=== PATIENT | male | born 1990 | race African-American/Black ===

== ENCOUNTER → 2017-01-01 | Outpatient (CLI) | payer OTHER ==
--- NOTE | 2017-01-01 11:53 | RAD ---
Indication knee pain. No history of injury. AP lateral and oblique views of the left knee were obtained. No bony abnormality is seen
== END | disposition home or self-care (01) ==
LOC: DXRADRC 11:20
PROVIDERS: ATTEND Family Medicine
DX: M79.605 Pain in left leg (principal)
CPT/HCPCS: 73562

== ENCOUNTER 2017-04-04 11:06 | Emergency (ER) | payer OTHER ==
[~2017-04-04] VITALS: Ht 177.8 cm; Wt 136.1 kg
[2017-04-04] MEDS ORDERED: IOHEXOL 300 MG/ML 75 ML VIAL. IV ONE (11:45)
[2017-04-04 11:56] LABS: HEMOGLOBIN ISTAT 15.6 gm/dL
--- NOTE | 2017-04-04 12:32 | RAD ---
Indication right lower quadrant pain for a week. Axial images through the abdomen and pelvis were obtained. 75 cc of Omnipaque 300 was administered intravenously. No oral contrast was administered. Note is made of a previous examination in 2006. The lung bases are clear. The liver and spleen appear unremarkable. The gallbladder appears grossly normal. No adrenal or renal anomalies are seen. The pancreas appears unremarkable. A focal mass or inflammatory process in the abdomen is not seen. In the pelvis the appendix is seen in the right lower quadrant and appears unremarkable. A focal mass is not seen. An acute finding in the pelvis is not apparent. There are occasional calcifications in the pelvis compatible with phleboliths. IMPRESSION: No acute finding seen in the abdomen or pelvis.
[2017-04-04 12:49] VITALS: BP 146/100
--- NOTE | 2017-04-04 14:30 | ED.ADGEN ---
Past History Past Medical History: Diabetes Past Surgical History: No Surgical History Alcohol Use: None Drug Use: None Adult General Chief Complaint Chief Complaint Abdominal pain HPI HPI Patient is a 26-year-old -[place] male presents with intermittent abdominal pain times one week, nausea and vomiting. Patient was seen at the primary care office this morning and outpatient labs performed. He was referred to the ED for an CT of the abdomen and pelvis to rule out appendicitis. Patient' s pain is minimal at this time. He denies urinary frequency urgency or hematuria. No flank pain history of kidney stones. No testicular pain swelling or or masses per patient. Review of Systems Review of Systems Review symptoms as per history of present illness. All other review symptoms are negative. Current Medications Current Medications Current Medications Medications (Trade) Dose Ordered Sig/Rina Start Time Stop Time Status Last Admin Dose Admin Iohexol (Omnipaque 300 Mg/ml) 75 ml 1X ONCE 04/04/17 11:45 04/04/17 11:46 DC Allergies Allergies Allergies Coded Allergies Type Severity Reaction Last Updated Verified No Known Drug Allergies 04/04/17 No Physical Exam Physical Exam Constitutional: Well developed, well nourished, no acute distress, non-toxic appearance. [] HENT: Normocephalic, atraumatic, bilateral external ears normal, oropharynx moist, no oral exudates, nose normal. [] Eyes: PERRLA, EOMI, conjunctiva normal, no discharge. [] Neck: Normal range of motion, no tenderness, supple, no stridor. [] Cardiovascular:Heart rate regular rhythm, no murmur [] Lungs & Thorax: Bilateral breath sounds clear to auscultation [] Abdomen: Bowel sounds normal, soft, no tenderness to palpation. Negative McBurney sign.. [] Skin: Warm, dry, no erythema, no rash. [] Back: No tenderness, no CVA tenderness. [] Neurologic: Alert and oriented X 3, normal motor function, normal sensory function, no focal deficits noted. [] Psychologic: Affect normal, judgement normal, mood normal. [] Current Patient Data Vital Signs Vital Signs Date Time Temp Pulse Resp B/P (MAP) Pulse Ox O2 Delivery O2 Flow Rate FiO2 04/04/17 12:49 69 18 146/100 (115) 98 Room Air 04/04/17 11:14 97.7 Lab Results Laboratory Tests Test 04/04/17 11:48 POC Hemoglobin 15.6 gm/dL POC Hematocrit 46 % POC Sodium 141 mmol/L (135-145) POC Potassium 4.0 mmol/L (3.5-5.0) POC Chloride 102 mmol/L (98-110) POC Total CO2 25 mmol/L (23-32) Anion Gap 19 mmol/L (6-14) H POC Blood Urea Nitrogen 11 mg/dL (8-26) POC Creatinine 1.0 mg/dL (0.5-1.4) Glucose Level 94 mg/dL (60-99) POC Ionized Calcium (Frantz) 1.19 mmol/L (1.13-1.32) EKG EKG [] Radiology/Procedures Radiology/Procedures [CT abdomen pelvis: No acute intra-abdominal process per radiology report.] Course & Med Decision Making Course & Med Decision Making Pertinent Labs and Imaging studies reviewed. (See chart for details) [Intermittent right lower abdominal pain with benign exam. CT abdomen pelvis ordered per PCP's request and is unremarkable. Recommend supportive care and PCP follow-up as needed. Return precautions reviewed.] Final Impression Final Impression [#1 abdominal pain #2 nausea and vomiting by history] Problems: Dragon Disclaimer Dragon Disclaimer This electronic medical record was generated, in whole or in part, using a voice recognition dictation system. RICHARD SHANKAR DO Apr 04, 2017 14:30
== END 2017-04-04 12:53 | disposition home or self-care (01) ==
LOC: ER 11:06
DX: R10.31 Right lower quadrant pain (principal); R11.2 Nausea with vomiting, unspecified; E11.9 Type 2 diabetes mellitus without complications
CPT/HCPCS: 36415; 74177; 80047; 99284-25

== ENCOUNTER 2020-11-23 22:10 | Emergency (ER) | payer MEDICAID, OTHER ==
[~2020-11-23] VITALS: Ht 175.3 cm; Wt 137.7 kg
[2020-11-23 22:28] VITALS: BP 132/88
--- NOTE | 2020-11-23 22:55 | PHYS DOC ---
Past History Past Medical History: Asthma, Depression, Diabetes Past Surgical History: No Surgical History Alcohol Use: None Drug Use: None Adult General Chief Complaint Chief Complaint: LOWER EXT PAIN HPI HPI Patient is a 30yo male presenting for left lower leg pain. This is a chronic issue. He has extensive PMHx diabetes, neuropathy, anxiety and depression and has had extensive workup on his LLE. He hs has radiograph, CT imaging, MRI and other EMG testing etc. Nothing known makes better, ambulation makes worse. Reports pain is "electric" in nature and radiates from anterior douglas down to foot. He takes Gabapentin for this only, states he is currently pending neurologist evaluation in outpatient setting. Denies taking NSAIDs or Tylenol. No fever, chills, falls, cp, shob, dysuria or other concerning complaints. Review of Systems Review of Systems Fourteen body systems of review of systems have been reviewed. See HPI for pertinent positives and negative responses, other [place] all other systems are negative, non-pertinent or non-contributory Allergies Allergies Allergies Coded Allergies Type Severity Reaction Last Updated Verified No Known Drug Allergies 04/04/17 No Physical Exam Physical Exam Constitutional: Well developed, well nourished, no acute distress, non-toxic appearance. HENT: Normocephalic, atraumatic, bilateral external ears normal, oropharynx moist, no oral exudates, nose normal. Eyes: PERRLA, EOMI, conjunctiva normal, no discharge. Neck: Normal range of motion, no tenderness, supple, no stridor. Cardiovascular: Heart rate regular, sinus rhythm, no murmurs rubs or gallops Lungs & Thorax: Bilateral breath sounds clear to auscultation Abdomen: Bowel sounds normal, soft, no tenderness, no masses, no pulsatile masses. Nonsurgical abdomen, no peritoneal signs Skin: Warm, dry, no erythema, no rash. Back: No tenderness, no CVA tenderness. Extremities: No tenderness, no cyanosis, no clubbing, ROM intact, no edema. Neurologic: Alert and oriented X 3, grossly normal motor & sensory function, no focal deficits noted. Psychologic: Affect normal, judgement normal, mood normal. Current Patient Data Vital Signs Vital Signs Date Time Temp Pulse Resp B/P (MAP) Pulse Ox O2 Delivery O2 Flow Rate FiO2 11/23/20 22:28 98.1 93 18 132/88 (103) 98 Room Air EKG EKG [] Radiology/Procedures Radiology/Procedures [] Heart Score C/O Chest Pain: No Risk Factors: Risk Factors: DM, Current or recent (<one month) smoker, HTN, HLP, family history of CAD, obesity. Risk Scores: Risk Factors: DM, Current or recent (<one month) smoker, HTN, HLP, family history of CAD, obesity. Course & Med Decision Making Course & Med Decision Making Hemodynamically stable patient with non-concerning HPI and physical exam. He is well followed in outpatient setting for this chronic pain. There has been no trauma, known mechanism or injury or other concerning findings. He is pending neuro referral. He hasn't taken anything besides Gabapentin I am not sure what he wants at this visit besides pain control. I discussed little utility in repeat workup given that there has bee no new exacerbation/injury. He can take NSAIDs/tylenol for pain until follow-up. He is ambulatory. Return precautions discussed, patient to follow-up with PCP on Thursday to discuss next steps in care for non-emergent complaint. Dragon Disclaimer Dragon Disclaimer This electronic medical record was generated, in whole or in part, using a voice recognition dictation system. Departure Departure: Impression: Primary Impression: Chronic pain of left lower extremity Additional Impression: Type 2 diabetes mellitus Disposition: DC HOME SELF CARE/HOMELESS Condition: STABLE Referrals: BRAULIO RODRIGUEZ MD (PCP) Additional Instructions: As discussed prior to ER departure, you are suffering from chronic leg pain. This is been worked out extensively in outpatient setting involving numerous specialists. You have been taking gabapentin only for this pain As discussed, you have had extensive imaging on this. Based on physical examination today, there is little indication to repeat radiographs and/or CT imaging that is present at our facility for your leg in the absence of any trauma or other inciting mechanism of injury I would continue supportive care practices such as Tylenol as needed for pain to accompany your current prescription of gabapentin. I advise you call your primary care physician first thing Thursday morning to review ER visit today. If any concerning signs or symptoms present prior to outpatient follow-up please do not hesitate to come back for repeat evaluation It was a pleasure to take care of you and I wish you speedy recovery Problem Qualifiers MAEGAN HELMS DO Nov 23, 2020 22:55
[2020-11-23] MEDS ORDERED: ACETAMINOPHEN 325 MG TABLET PO ONE ×2 (22:58→23:30)
== END 2020-11-23 23:06 | disposition home or self-care (01) ==
LOC: ER 22:10
DX: G89.29 Other chronic pain (principal); M79.662 Pain in left lower leg; E11.40 Type 2 diabetes mellitus with diabetic neuropathy, unspecified; J45.909 Unspecified asthma, uncomplicated; F41.9 Anxiety disorder, unspecified; F32.9 Major depressive disorder, single episode, unspecified
CPT/HCPCS: 99282

== ENCOUNTER 2021-04-03 08:58 | Emergency (ER) | payer SELFPAY ==
[~2021-04-03] VITALS: Ht 175.3 cm; Wt 140.9 kg
[2021-04-03] MEDS ORDERED: IV NORMAL SALINE 1,000ML 1,000 ML IV ONE (09:30)
[2021-04-03] MEDS ORDERED: ONDANSETRON PF 4 MG/2 ML VIAL. IVP ONE (09:30)
--- NOTE | 2021-04-03 09:49 | RAD ---
AP chest. HISTORY: Cough AP view was taken of the chest. Lungs are free of infiltrates. There is no pleural effusion. Heart is normal in size. IMPRESSION: 1. No acute chest disease. Electronically signed by: Lokesh Garcia MD (04/03/2021 9:47 AM) [id number]
--- NOTE | 2021-04-03 10:18 | PHYS DOC ---
Past History Past Medical History: Asthma, Depression, Diabetes Past Surgical History: No Surgical History Alcohol Use: None Drug Use: None General Adult EDM: Chief Complaint: NAUSEA/VOMITING/DIARRHEA HPI: HPI: 30-year-old male presents with vomiting, diarrhea and cough. Patient developed a cough yesterday morning. Last night he had vomiting and diarrhea. He decided come in for evaluation today. He does not recall being around anyone that is sick. He was fully vaccinated for COVID-19 in October. He denies fever or chills. Review of Systems: Review of Systems: Constitutional: Denies fever or chills Eyes: Denies change in visual acuity HENT: Denies nasal congestion or sore throat Respiratory: Cough without shortness of breath Cardiovascular: Denies chest pain or edema GI: Vomiting, diarrhea. Denies abdominal pain, nausea. : Denies dysuria Musculoskeletal: Denies back pain or joint pain Integument: Denies rash Neurologic: Denies headache, focal weakness or sensory changes Endocrine: Denies polyuria or polydipsia Lymphatic: Denies swollen glands Psychiatric: Denies depression or anxiety Current Medications: Current Meds: Current Medications Medications (Trade) Dose Ordered Sig/Rina Start Time Stop Time Status Last Admin Dose Admin Ondansetron HCl (Zofran) 4 mg 1X ONCE 04/03/21 09:30 04/03/21 09:35 DC 04/03/21 09:59 4 MG Sodium Chloride 1,000 ml @ 1,000 mls/hr 1X ONCE 04/03/21 09:30 04/03/21 10:29 04/03/21 09:59 1,000 MLS/HR Allergies: Allergies: Allergies Coded Allergies Type Severity Reaction Last Updated Verified No Known Drug Allergies 04/04/17 No Physical Exam: PE: Constitutional: Well developed, well nourished, morbidly obese, no acute distress, non-toxic appearance. [] HENT: Normocephalic, atraumatic, bilateral external ears normal, oropharynx moist, no oral exudates, nose normal. [] Eyes: PERRLA, EOMI, conjunctiva normal, no discharge. [] Neck: Normal range of motion, no tenderness, supple, no stridor. [] Cardiovascular: Heart rate regular rhythm, no murmur [] Lungs & Thorax: Bilateral breath sounds clear to auscultation [] Abdomen: Bowel sounds normal, soft, no tenderness, no masses, no pulsatile masses. [] Skin: Warm, dry, no erythema, no rash. [] Back: No tenderness, no CVA tenderness. [] Extremities: No tenderness, no cyanosis, no clubbing, ROM intact, no edema. [] Neurologic: Alert and oriented X 3, normal motor function, normal sensory f unction, no focal deficits noted. [] Psychologic: Affect normal, judgement normal, mood normal. [] EKG: EKG: [] Radiology/Procedures: Radiology/Procedures: [] Impressions: AP chest. HISTORY: Cough AP view was taken of the chest. Lungs are free of infiltrates. There is no pl eural effusion. Heart is normal in size. IMPRESSION: 1. No acute chest disease. Electronically signed by: Lokesh Wolf MD (04/03/2021 9:47 AM) [id number] DICTATED AND SIGNED BY: LOKESH WOLF MD DATE: 04/03/21 0946 CC: RICHARD STEPHENS DO; BRAULIO RODRIGUEZ MD ~MTH0 0 Heart Score: C/O Chest Pain: N/A Risk Factors: Risk Factors: DM, Current or recent (<one month) smoker, HTN, HLP, family history of CAD, obesity. Risk Scores: Score 0 - 3: 2.5% MACE over next 6 weeks - Discharge Home Score 4 - 6: 20.3% MACE over next 6 weeks - Admit for Clinical Observation Score 7 - 10: 72.7% MACE over next 6 weeks - Early Invasive Strategies Course & Med Decision Making: Course & Med Decision Making Pertinent Labs and Imaging studies reviewed. (See chart for details) I ordered for Zofran and a liter of normal saline for the patient. His nausea has improved. His labs are unremarkable. His chest x-ray is negative for acute findings. I will discharge the patient with Zofran ODT. He is stable for discharge at this time. [] Dragon Disclaimer: Dragharvinder Disclaimer: This electronic medical record was generated, in whole or in part, using a voice recognition dictation system. Departure Departure: Impression: Primary Impression: Vomiting and diarrhea Disposition: HOME / SELF CARE / HOMELESS Condition: STABLE Referrals: BRAULIO RODRIGUEZ MD (PCP) Patient Instructions: Diarrhea, [id number], Nausea and Vomiting, [id number] Scripts Ondansetron (ONDANSETRON ODT) 4 Mg Tab.rapdis 1 TAB PO PRN Q6-8HRS PRN for VOMITING, #16 TAB Prov: RICHARD STEPHENS DO 04/03/21 RICHARD STEPHENS DO Apr 03, 2021 10:18
[2021-04-03 10:20] LABS: BASO # 0.1 x10^3/uL (0.0-0.2); BASO % 1 % (0-3); EOS # 0.1 x10^3/uL (0.0-0.7); EOS % 1 % (0-3); HEMATOCRIT 42.5 % (39.0-53.0); HEMOGLOBIN 13.6 g/dL (13.0-17.5); LYMPH # 2.5 x10^3/uL (1.0-4.8); LYMPH % 29 % (24-48); MEAN CORPUSCULAR HEMOGLOBIN 23 pg (25-35); MEAN CORPUSCULAR HGB CONC 32 g/dL (31-37); MEAN CORPUSCULAR VOLUME 73 fL (79-100); MONO # 0.7 x10^3/uL (0.0-1.1); MONO % 8 % (0-9); NEUT # 5.3 x10^3uL (1.8-7.7); NEUT % 62 % (31-73); PLATELET COUNT 176 x10^3/uL (140-400); RED BLOOD COUNT 5.84 x10^6/uL (4.30-5.70); RED CELL DISTRIBUTION WIDTH 15.1 % (11.5-14.5); WHITE BLOOD COUNT 8.7 x10^3/uL (4.0-11.0)
[2021-04-03 10:36] LABS: CALCIUM 8.4 mg/dL (8.5-10.1); CREATININE 1.1 mg/dL (0.7-1.3); GFR 93.9; POTASSIUM 4.4 mmol/L (3.5-5.1)
[2021-04-03 10:42] LABS: ALBUMIN 3.5 g/dL (3.4-5.0); ALBUMIN/GLOBULIN RATIO 0.9 (1.0-1.7); TOTAL BILIRUBIN 0.3 mg/dL (0.2-1.0); TOTAL PROTEIN 7.5 g/dL (6.4-8.2)
[2021-04-03] MEDS ORDERED: ONDA4TAB12 PO (10:56)
[2021-04-03 11:08] VITALS: BP 139/84
== END 2021-04-03 11:08 | disposition home or self-care (01) ==
LOC: ER 08:58
DX: R11.10 Vomiting, unspecified (principal); R19.7 Diarrhea, unspecified; R05 Cough; J45.909 Unspecified asthma, uncomplicated; E11.9 Type 2 diabetes mellitus without complications
CPT/HCPCS: 36415; 71045; 80053; 83690; 85025; 96361; 96374; 99284; J2405; J7030

== ENCOUNTER 2021-07-27 22:26 | Emergency (ER) | payer SELFPAY ==
[~2021-07-27] VITALS: Ht 175.3 cm; Wt 140.9 kg
[~2021-07-27 22:26] MED LIST: ONDA4TAB12 PO
--- NOTE | 2021-07-27 22:32 | PHYS DOC ---
Past History Past Medical History: Asthma, Depression, Diabetes Past Surgical History: Other Additional Past Surgical Histo: DENTAL Alcohol Use: None Drug Use: None Adult General HPI HPI Patient is a 30-year-old male who presents with chronic shoulder and knee pain who presents to the emergency department with a chief complaint of shoulder and knee pain. States it has been going on for about a year and has had multiple images including MRI showing arthritis. States he is taking Tylenol at home with minimal relief. States that the pain is about 7 out of 10, dull and achy in nature, intermittent, and worse with movement. Denies any recent traumas, chest pain, shortness of breath, abdominal pain, nausea, vomiting. Denies any numbness/weakness/tingling. Denies any trouble sitting, standing or walking. Review of Systems Review of Systems Review of systems otherwise unremarkable except noted in HPI Allergies Allergies Allergies Coded Allergies Type Severity Reaction Last Updated Verified No Known Drug Allergies 04/04/17 No Physical Exam Physical Exam Constitutional: Well developed, well nourished, no acute distress, non-toxic appearance. [] HENT: Normocephalic, atraumatic, Eyes: conjunctiva normal, no discharge. [] Neck: Normal range of motion, no tenderness, supple, no stridor. [] Cardiovascular:Heart rate regular rhythm, no murmur [] Lungs & Thorax: Bilateral breath sounds clear to auscultation [] Skin: Warm, dry, no erythema, no rash. [] Back: No tenderness, Extremities: Mild generalized tenderness on passive range of motion with no obvious deformities, bruising, swelling, neurovascular exam intact Neurologic: Alert and oriented X 3, no focal deficits noted. [] Psychologic: Affect normal, judgement normal, mood normal. [] EKG EKG [] Radiology/Procedures Radiology/Procedures [] Heart Score C/O Chest Pain: No Risk Factors: Risk Factors: DM, Current or recent (<one month) smoker, HTN, HLP, family history of CAD, obesity. Risk Scores: Risk Factors: DM, Current or recent (<one month) smoker, HTN, HLP, family history of CAD, obesity. Course & Med Decision Making Course & Med Decision Making Patient is a 30-year-old male who presents with chronic shoulder and knee pain Vital signs not concerning. Physical exam noted above. Given pain medicine. Patient declined imaging saying he is already had plain imaging and just wants pain medicine. Discussed all findings with patient. Advised on pain management at home. Given [place] pain management phone number. Advised to follow-up on Thursday with primary care physician. Gave return precautions to the ED. Patient grateful, verbalized understanding and agreed with plan of discharge. Dragon Disclaimer Dragon Disclaimer This electronic medical record was generated, in whole or in part, using a voice recognition dictation system. Departure Departure: Impression: Primary Impression: Shoulder pain Additional Impression: Knee pain Disposition: HOME / SELF CARE / HOMELESS Condition: GOOD Referrals: BRAULIO RODRIGUEZ MD (PCP) Patient Instructions: RICE - Routine Care for Injuries Additional Instructions: Thank you for coming into the emergency department tonight and allowing us to take care of you. Please read the attached information carefully to go back over some of the things we discussed. Please begin a Tylenol, ibuprofen and Benadryl regimen as well as ice. It is very important that you follow-up with your primary care physician on Thursday to update on ED visit and set up a follow-up as soon as possible. Please come back to the ED with new or concerning symptoms as discussed. You can also call the [place] pain management center at [phone] to set up an appointment to discuss chronic pain management. Problem Qualifiers SUSAN VIDES MD Jul 27, 2021 22:32
[2021-07-27 22:36] VITALS: BP 146/97
[2021-07-27] MEDS ORDERED: HYDROcodone/APAP 5/325MG 1 TAB TABLET ONE (22:43)
[2021-07-27] MEDS ORDERED: HYDROcodone/APAP 5/325MG 1 TAB TABLET PO ONE (22:45)
== END 2021-07-27 22:47 | disposition home or self-care (01) ==
LOC: ER 22:26
DX: G89.29 Other chronic pain (principal); M25.512 Pain in left shoulder; M25.562 Pain in left knee; J45.909 Unspecified asthma, uncomplicated; F32.9 Major depressive disorder, single episode, unspecified; E11.9 Type 2 diabetes mellitus without complications
CPT/HCPCS: 99283

== ENCOUNTER 2021-08-09 13:07 | Emergency (ER) | payer SELFPAY ==
[~2021-08-09] VITALS: Ht 175.3 cm; Wt 140.9 kg
[2021-08-09] MEDS ORDERED: METOCLOPRAMIDE HCL 10 MG/2 ML VIAL. IVP ONE (15:45)
[2021-08-09] MEDS ORDERED: diphenhydrAMINE 50 MG/ML VIAL IVP ONE (15:45)
[2021-08-09] MEDS ORDERED: KETOROLAC 30 MG/ML VIAL. IVP ONE (15:45)
[2021-08-09] MEDS ORDERED: IV NORMAL SALINE 1,000ML 1,000 ML IV ONE (15:45)
--- NOTE | 2021-08-09 15:57 | PHYS DOC ---
Past History Past Medical History: Asthma, Depression, Diabetes Past Surgical History: Other Additional Past Surgical Histo: DENTAL Alcohol Use: None Drug Use: None General Adult EDM: Chief Complaint: HEADACHE HPI: HPI: 30-year-old male presents with headache, nausea, and vomiting. Patient has had headache for 2 days. It is a pulsing pressure sensation in the frontal part of his head. He has a history of migraines. He did try Excedrin without relief. He states that this headache is a little different in location because it is in his forehead and more to the right he typically has headaches in the mid head more on the left. He denies any falls or trauma. He had nausea and vomiting today which he believes was caused by the headache. He is vaccinated against COVID-19 and influenza. Denies fever or chills. He does have hypertension and diabetes. Review of Systems: Review of Systems: Constitutional: Denies fever or chills Eyes: Denies change in visual acuity HENT: Denies nasal congestion or sore throat Respiratory: Denies cough or shortness of breath Cardiovascular: Denies chest pain or edema GI: Denies abdominal pain, nausea, vomiting, bloody stools or diarrhea : Denies dysuria Musculoskeletal: Denies back pain or joint pain Integument: Denies rash Neurologic: Headache. Denies focal weakness or sensory changes Endocrine: Denies polyuria or polydipsia Lymphatic: Denies swollen glands Psychiatric: Denies depression or anxiety Current Medications: Current Meds: Current Medications Medications (Trade) Dose Ordered Sig/Rina Start Time Stop Time Status Last Admin Dose Admin Diphenhydramine HCl (Benadryl) 25 mg 1X ONCE 08/09/21 15:45 08/09/21 15:46 DC Ketorolac Tromethamine (Toradol 30mg Vial) 30 mg 1X ONCE 08/09/21 15:45 08/09/21 15:46 DC Metoclopramide HCl (Reglan Vial) 10 mg 1X ONCE 08/09/21 15:45 08/09/21 15:46 DC Sodium Chloride 1,000 ml @ 1,000 mls/hr 1X ONCE 08/09/21 15:45 08/09/21 16:44 Allergies: Allergies: Allergies Coded Allergies Type Severity Reaction Last Updated Verified No Known Drug Allergies 04/04/17 No Physical Exam: PE: Constitutional: Well developed, well nourished, morbidly obese, no acute distre ss, non-toxic appearance. [] HENT: Normocephalic, atraumatic, bilateral external ears normal, oropharynx mo ist, no oral exudates, nose normal. [] Eyes: PERRLA, EOMI, conjunctiva normal, no discharge. [] Neck: Normal range of motion, no tenderness, supple, no stridor. [] Cardiovascular: Heart rate regular rhythm, no murmur [] Lungs & Thorax: Bilateral breath sounds clear to auscultation [] Abdomen: Bowel sounds normal, soft, no tenderness, no masses, no pulsatile masses. [] Skin: Warm, dry, no erythema, no rash. [] Back: No tenderness, no CVA tenderness. [] Extremities: No tenderness, no cyanosis, no clubbing, ROM intact, no edema. [] Neurologic: Alert and oriented X 3, normal motor function, normal sensory function, no focal deficits noted. [] Psychologic: Affect normal, judgement normal, mood normal. [] Current Patient Data: Vital Signs: Vital Signs Date Time Temp Pulse Resp B/P (MAP) Pulse Ox O2 Delivery O2 Flow Rate FiO2 08/09/21 15:35 83 18 155/105 (122) 97 08/09/21 13:36 98.5 Room Air EKG: EKG: [] Radiology/Procedures: Radiology/Procedures: [] Heart Score: C/O Chest Pain: N/A Risk Factors: Risk Factors: DM, Current or recent (<one month) smoker, HTN, HLP, family history of CAD, obesity. Risk Scores: Score 0 - 3: 2.5% MACE over next 6 weeks - Discharge Home Score 4 - 6: 20.3% MACE over next 6 weeks - Admit for Clinical Observation Score 7 - 10: 72.7% MACE over next 6 weeks - Early Invasive Strategies Course & Med Decision Making: Course & Med Decision Making Pertinent Labs and Imaging studies reviewed. (See chart for details) The patient's labs are unremarkable. For his headache I given him a liter normal saline, 10 mg of Reglan, 30 mg of Toradol, 25 mg of Benadryl. The patient is stable for discharge at this time. [] Dragon Disclaimer: Dragon Disclaimer: This electronic medical record was generated, in whole or in part, using a voice recognition dictation system. Departure Departure: Impression: Primary Impression: Migraine headache Disposition: 01 HOME / SELF CARE / HOMELESS Condition: STABLE Referrals: BRAULIO RODRIGUEZ MD (PCP) Patient Instructions: Migraine Headache, [id number] RICHARD STEPHENS DO Aug 09, 2021 15:56
[2021-08-09 16:49] LABS: CALCIUM 8.9 mg/dL (8.5-10.1); GFR 104.8; POTASSIUM 4.2 mmol/L (3.5-5.1)
[2021-08-09 16:54] LABS: ALBUMIN 3.7 g/dL (3.4-5.0); ALBUMIN/GLOBULIN RATIO 0.9 (1.0-1.7); TOTAL BILIRUBIN 0.3 mg/dL (0.2-1.0)
[2021-08-09 16:56] LABS: BASO # 0.1 x10^3/uL (0.0-0.2); BASO % 1 % (0-3); EOS # 0.1 x10^3/uL (0.0-0.7); EOS % 1 % (0-3); HEMATOCRIT 42.9 % (39.0-53.0); HEMOGLOBIN 13.6 g/dL (13.0-17.5); LYMPH # 2.4 x10^3/uL (1.0-4.8); LYMPH % 27 % (24-48); MEAN CORPUSCULAR HEMOGLOBIN 23 pg (25-35); MEAN CORPUSCULAR HGB CONC 32 g/dL (31-37); MEAN CORPUSCULAR VOLUME 72 fL (79-100); MONO # 0.7 x10^3/uL (0.0-1.1); MONO % 8 % (0-9); NEUT # 5.8 x10^3uL (1.8-7.7); NEUT % 64 % (31-73); PLATELET COUNT 229 x10^3/uL (140-400); RED BLOOD COUNT 5.97 x10^6/uL (4.30-5.70); WHITE BLOOD COUNT 9.2 x10^3/uL (4.0-11.0)
[2021-08-09] MEDS ORDERED: DEXAMETHASONE SOD PHOS 10 MG/ML VIAL. IVP ONE (17:45)
[2021-08-09] MEDS ORDERED: MORPHINE SULFATE 4 MG/ML DISP.SYRIN. IV ONE (17:45)
[2021-08-09 18:30] VITALS: BP 164/118
== END 2021-08-09 18:32 | disposition home or self-care (01) ==
LOC: ER 13:07
DX: G43.909 Migraine, unspecified, not intractable, without status migrainosus (principal)
CPT/HCPCS: 36415; 80053; 85025; 96361; 96374; 96375; 99284; J1100; J1200; J1885; J2270; J2765; J7030

== ENCOUNTER 2021-12-18 00:44 | Emergency (ER) | payer MEDICAID, OTHER ==
[~2021-12-18] VITALS: Ht 175.3 cm; Wt 154.5 kg
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
[2021-12-18] MEDS: KETOROLAC 60 MG/2 ML VIAL. IM ONE (01:14)
[2021-12-18] MEDS: ORPHENADRINE CITRATE 60 MG/2 ML VIAL. IM ONE (01:14)
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
[2021-12-18 02:05] VITALS: BP 148/98
[2021-12-18] MEDS ORDERED: LIDO700A21 TP (02:08)
[2021-12-18] MEDS ORDERED: CYCL10TA19 PO (02:09)
[2021-12-18 02:57] LABS: BARBITURATES NEG (NEG); BENZODIAZEPINES NEG (NEG); CANNABINOIDS NEG (NEG); COCAINE NEG (NEG); METHADONE NEG (NEG); OPIATES NEG (NEG); PHENCYCLIDINE NEG (NEG)
[2021-12-18 02:59] LABS: CLARITY,URINE CLEAR; COLOR,URINE YELLOW
[2021-12-18 03:00] LABS: BACTERIA,URINE FEW /HPF (0-FEW); GLUCOSE,URINE NEG (NEG); NITRITE,URINE NEG (NEG); RBC,URINE 0 /HPF (0-2); SQUAMOUS EPITHELIAL CELL,UR FEW /LPF; UROBILINOGEN,URINE 0.2 mg/dL (0.2 mg/dL)
[2021-12-18 03:01] LABS: AMPHETAMINE/METHAMPHETAMINE NEG (NEG)
== END 2021-12-18 02:21 | disposition home or self-care (01) ==
LOC: ER 00:44
DX: G54.2 Cervical root disorders, not elsewhere classified (principal); M54.32 Sciatica, left side; G89.29 Other chronic pain; E11.9 Type 2 diabetes mellitus without complications; E66.01 Morbid (severe) obesity due to excess calories; Z68.43 Body mass index [BMI] 50.0-59.9, adult; J45.909 Unspecified asthma, uncomplicated; F32.9 Major depressive disorder, single episode, unspecified
CPT/HCPCS: 36415; 72125; 72131; 80307; 81001; 96372; 99284; J1885; J2360

== ENCOUNTER → 2022-01-20 | Outpatient (CLI) | payer OTHER ==
[~2022-01-20] MED LIST changes: +CYCL10TA19 PO; +LIDO700A21 TP
--- NOTE | 2022-01-20 14:29 | RAD ---
XR SHOULDER_LEFT 2+ VIEWS History: Reason: DISABILITY DETERMINATION / Spl. Instructions: / History: Technique: 3 views left shoulder Comparison: None. Findings: No dislocation. No acute fracture. Impression: 1. No acute osseous abnormality. Electronically signed by: Onofre Nathan DO (01/20/2022 2:26 PM) [id number]
== END ==
LOC: RAD 10:37
PROVIDERS: ATTEND Family Medicine
DX: Z02.71 Encounter for disability determination (principal); M25.512 Pain in left shoulder
CPT/HCPCS: 73030